=== PATIENT | male | born 1985 | race Caucasian/White ===

== ENCOUNTER 2017-07-29 08:28 | Emergency (ER) | payer OTHER ==
[~2017-07-29] VITALS: Ht 182.9 cm; Wt 101.6 kg
[~2017-07-29 08:28] MED LIST: ALEVE220 MG PO; AMITRIPTYLINE H50 M2 PO; CLEOCIN HCL300 MG PO; IBUPROFEN 800800 M1 PO; IBUPROFEN200 M2 PO; LIDOCAINE VISC100 M1 SWISH&SPIT; MIRALAX17 GM PO; NORCO 5-325 TA1 EACH PO; PEPCID20 MG PO; PHENERGAN 25 MG25 M1 PO; PROTONIX 20 MG20 M1 PO; PROTONIX40 M2 PO; ZOFRAN ODT4 MG PO
[2017-07-29 09:35] LABS: ABSOLUTE BASOPHILS 0.1 thou/uL (0.0-0.2); ABSOLUTE EOSINOPHILS 0.1 thou/uL (0.0-0.7); ABSOLUTE LYMPHOCYTES 1.6 thou/uL (0.8-5.3); ABSOLUTE MONOCYTES 0.8 thou/uL (0.0-1.2); ABSOLUTE NEUTROPHILS 11.6 thou/uL (1.6-8.1); BASOPHILS 0.4 %; EOSINOPHILS 0.4 %; HEMATOCRIT 50.8 % (42.0-52.0); HEMOGLOBIN 17.1 gm/dL (14.0-18.0); LYMPHOCYTES 11.4 %; MCHC 33.6 g/dL (28.0-37.0); MCV 86.2 fL (80.0-100.0); MONOCYTES 5.6 %; MPV 10.5 fl. (7.2-11.1); NUCLEATED RBCS 0 /100WBC; PLATELET COUNT* 253 thou/uL (150-400); POLYS 82.2 %; RBC 5.89 mil/uL (4.50-6.00); RDW-CV 13.5 % (10.5-14.5); WBC 14.1 thou/uL (4.0-11.0)
[2017-07-29 09:40] LABS: ANION GAP 12 mmol/L (7-16); BUN 14 mg/dL (7-18); CALCIUM 9.3 mg/dL (8.5-10.1); CHLORIDE 102 mmol/L (98-107); CO2 25 mmol/L (21-32); CREATININE 1.1 mg/dL (0.6-1.3); GLUCOSE 137 mg/dL (70-99); POTASSIUM 3.7 mmol/L (3.5-5.1); SODIUM 139 mmol/L (136-145)
[2017-07-29 09:47] LABS: ALBUMIN 4.1 g/dL (3.4-5.0); ALKALINE PHOSPHATASE 112 U/L (46-116); LIPASE 108 U/L (73-393); SGOT 35 U/L (15-37); SGPT 68 U/L (30-65); TOTAL BILIRUBIN 0.6 mg/dL (<0.1-1.0); TOTAL PROTEIN 8.1 g/dL (6.4-8.2); TROPONIN-I LEVEL <0.06 ng/mL (<0.06)
[2017-07-29 10:14] LABS: URINE BILIRUBIN NEGATIVE (Negative); URINE BLOOD NEGATIVE (Negative); URINE CLARITY CLEAR; URINE COLOR YELLOW; URINE GLUCOSE-RANDOM NEGATIVE (Negative); URINE KETONES 1+ (Negative); URINE LEUKOCYTES-REFLEX NEGATIVE (Negative); URINE NITRITE-REFLEX NEGATIVE (Negative); URINE PROTEIN TRACE (Negative); URINE SPECIFIC GRAVITY 1.015 (1.005-1.030); URINE UROBILINOGEN 0.2 E.U./dl (0.2-1.0)
[2017-07-29] MEDS ORDERED: ZOFRAN ODT4 MG PO (10:56)
[2017-07-29] MEDS ORDERED: PROPRANOLOL 1010 MG PO (10:56)
[2017-07-29 11:05] VITALS: BP 103/62
--- NOTE | 2017-07-29 16:24 | EKG ---
[place] [address] ELECTROCARDIOGRAM REPORT Name: MILADIS YATES Room: [facility]#: [id number] Admission: 07/29/17 Attend Phys: Discharge: 07/29/17 Date of : 83 Report #: [id number] THIS REPORT FOR: //name// [facility] ED Test Date: 2017-07-29 Test Time: 09:31:33 Pat Name: MILADIS YATES Department: Room: Gender: M Director [employer]: Diana MENDEZ : 1985 Requested By: Chuck Jones Order Number: [id number] MD: Carlos Eduardo Downs Measurements Intervals Mobile Rate: 68 P: -44 MD: 116 QRS: 17 QRSD: 92 T: 25 QT: 430 QTc: 458 Interpretive Statements Sinus rhythm Borderline short MD interval No previous ECG available for comparison Electronically Signed On 07-29-2017 16:24:27 CDT by Carlos Eduardo Downs [email or web address] <ELECTRONICALLY SIGNED> By: Carlos Eduardo Downs MD, [facility] 07/29/17 1624 0931 0931 Carlos Eduardo Downs MD, FACC /EPI
== END 2017-07-29 11:06 | disposition home or self-care (01) ==
LOC: M.ERS 08:28
PROVIDERS: Emergency Medicine
DX: G43.A0 Cyclical vomiting, in migraine, not intractable (principal); Z87.442 Personal history of urinary calculi